=== PATIENT | female | born 1970 | race African-American/Black ===

== ENCOUNTER 2022-02-17 21:23 | Emergency (ER) | payer SELFPAY ==
[~2022-02-17] VITALS: Ht 165.1 cm; Wt 94.0 kg
[2022-02-17 23:42] LABS: CHLORIDE 110 mEq/L (98-107)
[2022-02-17 23:45] LABS: BASOPHILS % 0.5 % (0.0-2.0); EOSINOPHILS % 1.3 % (0.0-5.0); HEMATOCRIT. 40.8 % (36.0-48.0); HEMOGLOBIN. 13.6 g/dL (12.0-16.0); LYMPHOCYTES % 46.3 % (20.0-50.0); MEAN CORPUSCULAR HEMOGLOBIN 29.6 pg (28.0-32.0); MEAN CORPUSCULAR VOLUME 89.3 fL (81.0-99.0); MONOCYTES % 10.2 % (2.0-8.0); NEUTROPHILS % 41.7 % (40.0-76.0); PLATELET 309 x1000/uL (130-400); RED BLOOD CELL COUNT 4.57 mill/uL (4.2-5.4); RED CELL DISTRIBUTION WIDTH 14.4 % (11.6-14.6)
[2022-02-18] MEDS ORDERED: ACETAMINOPHEN 325MG TABLET PO STA (01:51)
[2022-02-18 01:58] LABS: CLARITY URINE CLEAR (CLEAR); COLOR URINE YELLOW (YELLOW); KETONES URINE NEGATIVE (NEGATIVE); LEUKOCYTE ESTERASE URINE NEGATIVE (NEGATIVE); NITRITE URINE NEGATIVE (NEGATIVE); OCCULT BLOOD URINE NEGATIVE (NEGATIVE); PROTEIN URINE NEGATIVE (NEGATIVE); SPECIFIC GRAVITY URINE 1.031 (1.005-1.030)
[2022-02-18] MEDS ORDERED: ACET-2708 PO (02:03)
[2022-02-18 02:53] VITALS: BP 129/83
== END 2022-02-18 02:57 | disposition home or self-care (01) ==
LOC: ER 21:23
DX: R60.0 Localized edema (principal); K13.0 Diseases of lips
CPT/HCPCS: 36415; 80053; 81003; 85025; 99283